=== PATIENT | female | born 1945 | race Caucasian/White ===

== ENCOUNTER 2016-04-01 17:02 | Emergency (ER) | payer MEDICARE ==
[2016-04-01 18:00] VITALS: BP 150/90
--- NOTE | 2016-04-01 19:44 | Emergency Department Report ---
Chief Complaint: Urogenital-Female Stated Complaint: HYPERGLYCEMIA/VAG PAIN/FEVER Time Seen by Provider: 04/01/16 19:34 - HPI History of Present Illness: 70-year-old female comes in for chest congestion with greenish yellow sputum gone on for 2 weeks. She is also reports that she is having some vaginal discharge as well as vaginal pain and fever. - Exam Vital Signs: Vital Signs 04/01/16 17:51 Temperature 98.6 F Pulse Rate 76 Respiratory 16 Rate Blood Pressure 150/90 O2 Sat by Pulse 99 Oximetry Physical Exam: He is alert and oriented 3. Cardiovascular S1-S2 regular rate and rhythm respiratory clear to auscultation bilateral MSE screening note: Focused history and physical exam performed. Due to findings the following was ordered: ABCs BMP chest x-ray ordered patient be evaluated the main ER ED Disposition for MSE Condition: Stable
[2016-04-01 20:19] LABS: Hematocrit 39.2 % (30.3-42.9); Hemoglobin 12.8 gm/dl (10.1-14.3); Mean Corpuscular HGB Conc 33 % (30-34); Mean Corpuscular Hemoglobin 29 pg (28-32); Mean Corpuscular Volume 90 fl (79-97); Platelet Count 250 K/mm3 (140-440); Red Blood Count 4.38 M/mm3 (3.65-5.03); Red Cell Distribution Width 15.7 % (13.2-15.2); White Blood Count 7.5 K/mm3 (4.5-11.0)
[2016-04-01 20:37] LABS: Anion Gap 17 mmol/L; Blood Urea Nitrogen 10 mg/dL (7-17); Calcium 10.4 mg/dL (8.4-10.2); Carbon Dioxide 29 mmol/L (22-30); Chloride 97.9 mmol/L (98-107); Glucose 403 mg/dL (65-100); Potassium 4.8 mmol/L (3.6-5.0); Sodium 139 mmol/L (137-145)
[2016-04-01 22:30] LABS: Bilirubin,Urine NEG (Negative); Blood,Urine NEG (Negative); Ketones,Urine NEG (Negative); Leukocyte Esterase,Urine TR (Negative); Nitrite,Urine NEG (Negative); Protein,Urine <15 mg/dL mg/dL (Negative); Urobilinogen,Urine < 2.0 mg/dL (<2.0)
--- NOTE | 2016-04-02 08:25 | XRay Report ---
ROUTINE CHEST, TWO VIEWS: HISTORY: Cough. The trachea, heart, mediastinal contour, lung whyte and bony thorax are unremarkable. IMPRESSION: Unremarkable chest x-ray.
--- NOTE | 2016-04-03 18:07 | ED Elopement Review ---
ED Pt Elopement review - Results review Lab results: Laboratory Tests 04/01/16 04/01/16 04/01/16 17:54 19:56 19:56 WBC 7.5 RBC 4.38 Hgb 12.8 Hct 39.2 MCV 90 MCH 29 MCHC 33 RDW 15.7 H Plt Count 250 Sodium 139 Potassium 4.8 Chloride 97.9 L Carbon Dioxide 29 Anion Gap 17 BUN 10 Creatinine 0.8 Estimated GFR > 60 BUN/Creatinine Ratio 12.50 Glucose 403 H POC Glucose 398 H Calcium 10.4 H Urine Color Urine Turbidity Urine pH Ur Specific [place] Urine Protein Urine Glucose (UA) Urine Ketones Urine Blood Urine Nitrite Urine Bilirubin Urine Urobilinogen Ur Leukocyte Esterase Urine WBC (Auto) Urine RBC (Auto) U Epithel Cells (Auto) 04/01/16 22:00 WBC RBC Hgb Hct MCV MCH MCHC RDW Plt Count Sodium Potassium Chloride Carbon Dioxide Anion Gap BUN Creatinine Estimated GFR BUN/Creatinine Ratio Glucose POC Glucose Calcium Urine Color Straw Urine Turbidity Clear Urine pH 5.0 Ur Specific [place] 1.022 Urine Protein <15 mg/dl Urine Glucose (UA) >=500 Urine Ketones Neg Urine Blood Neg Urine Nitrite Neg Urine Bilirubin Neg Urine Urobilinogen < 2.0 Ur Leukocyte Esterase Tr Urine WBC (Auto) 1.0 Urine RBC (Auto) 2.0 U Epithel Cells (Auto) < 1.0 - Call Back decision Pt Call Back Decision: Pt to F/U with PMD
== END 2016-04-02 03:11 | disposition left against medical advice (07) ==
LOC: ED 17:02
DX: R09.89 Other specified symptoms and signs involving the circulatory and respiratory systems (principal); N89.8 Other specified noninflammatory disorders of vagina; R50.9 Fever, unspecified; Z53.21 Procedure and treatment not carried out due to patient leaving prior to being seen by health care provider
CPT/HCPCS: 36415; 71020; 80048; 81001; 82962; 85027

== ENCOUNTER 2016-12-23 11:09 | Inpatient (IN) | payer MEDICARE ==
--- NOTE | 2016-12-23 13:29 | Emergency Department Report ---
HPI - General Chief Complaint: Hypoglycemia Time Seen by Provider: 12/23/16 12:12 - HPI HPI: This is a 71 year-old female presents to the emergency department by EMS from home with the complaint of hypoglycemia. The patient called her daughter at work and told her to "help me, help me." The daughter called EMS who was able to get into the house and found the patient had a blood sugar of 51 and then rechecked it and it was down to 33. She was given 2 oral glucose tabs and the blood sugar went up to 90. Since patient got to the emergency department, she appears to be awake and alert, following commands, but appears unable to speak. She has a past medical history of a previous CVA that did not have any residual deficits, [id number]-nnjzfabuf diabetes, GERD, hypertension, hypothyroidism and coronary artery disease with previous triple bypass in July of this year. Her primary care physician is Dr. Srinivasa Stark and her yard hand is through [facility] ED Past Medical Hx - Past Medical History Previous Medical History?: Yes Hx Hypertension: Yes Hx CVA: Yes Hx Diabetes: Yes Hx GERD: Yes Additional medical history: Hyperlipidemia, hypothyroidism - Surgical History Past Surgical History?: Yes Hx Open Heart Surgery: Yes (triple bypass) - Social History Smoking Status: Never Smoker Substance Use Type: None - Medications Home Medications: Home Medications Medication Instructions Recorded Confirmed Last Taken Type Aspirin [Aspirin TAB] 325 mg PO QDAY 09/01/15 09/01/15 Unknown History AtorvaSTATin [Lipitor] 40 mg PO HS 09/01/15 09/01/15 Unknown History Clopidogrel Bisulfate [Plavix] 75 mg PO DAILY 09/01/15 09/01/15 Unknown History HYDROcodone/APAP 5-325 [[place] 1 tab PO Q6HR PRN 09/01/15 09/01/15 Unknown History 5-325 mg TAB] Levothyroxine [Synthroid] 50 mcg PO QAM 09/01/15 09/01/15 Unknown History Losartan [Cozaar] 100 mg PO QDAY 09/01/15 09/01/15 Unknown History Metformin HCl [Glucophage] 500 mg PO BID 09/01/15 09/01/15 Unknown History Pregabalin [Lyrica] 50 mg PO BID 09/01/15 09/01/15 Unknown History Ranitidine HCl [Zantac 150 MG TAB] 300 mg PO HS 09/01/15 09/01/15 Unknown History Tramadol HCl [Ultram ER] 100 mg PO TID PRN 09/01/15 09/01/15 Unknown History amLODIPine [Norvasc] 5 mg PO DAILY 09/01/15 09/01/15 Unknown History Lantus Torresostar 35 units SUB-Q QHS 09/02/15 09/02/15 Unknown History ED Review of Systems ROS: Stated complaint: LOW BLOOD SUGAR Other details as noted in HPI Comment: All other systems reviewed and negative Constitutional: denies: chills, fever Eyes: denies: eye pain, eye discharge, vision change ENT: denies: ear pain, throat pain Respiratory: denies: cough, shortness of breath, wheezing Cardiovascular: denies: chest pain, palpitations Gastrointestinal: abdominal pain. denies: vomiting Genitourinary: denies: urgency, dysuria, discharge Musculoskeletal: arthralgia. denies: back pain Skin: denies: rash, lesions Neurological: other (aphasia). denies: headache, numbness Physical Exam - Physical Exam Vital Signs: Vital Signs 12/23/16 12/23/16 12/23/16 11:34 11:42 12:00 Pulse Rate 49 L 47 L Respiratory 10 L 16 18 Rate Blood Pressure 115/52 115/52 O2 Sat by Pulse 99 98 Oximetry 12/23/16 12:30 Pulse Rate 45 L Respiratory 17 Rate Blood Pressure 141/64 O2 Sat by Pulse 98 Oximetry Physical Exam: GENERAL: The patient is well-developed well-nourished. HENT: Normocephalic. Atraumatic. Patient has moist mucous membranes. EYES: Extraocular motions are intact. Pupils equal reactive to light bilaterally. No nystagmus. NECK: Supple. Trachea is midline. CHEST/LUNGS: Clear to auscultation. There is no respiratory distress noted. HEART/CARDIOVASCULAR: Regular. There is bradycardia.. There is no gallop rub or murmur. ABDOMEN: Abdomen is soft, nontender. Patient has normal bowel sounds. There is no abdominal distention. SKIN: Skin is warm and dry. NEURO: Patient is awake and cooperative. She responds to questions with nodding and shaking of her head. She will follow commands but is nonverbal. MUSCULOSKELETAL: There is no tenderness or deformity. There is no evidence of acute injury. ED Course Vital Signs 12/23/16 12/23/16 12/23/16 11:34 11:42 12:00 Pulse Rate 49 L 47 L Respiratory 10 L 16 18 Rate Blood Pressure 115/52 115/52 O2 Sat by Pulse 99 98 Oximetry 12/23/16 12:30 Pulse Rate 45 L Respiratory 17 Rate Blood Pressure 141/64 O2 Sat by Pulse 98 Oximetry ED Medical Decision Making - Lab Data Result diagrams: 12/23/16 13:27 12/23/16 13:27 - EKG Data -: EKG Interpreted by Me EKG shows normal: sinus rhythm, axis (LAD), intervals, QRS complexes (low voltage, nonspecific intraventricular conduction delay), ST-T waves Rate: bradycardia (45 bpm) - EKG Data When compared to previous EKG there are: no significant change Interpretation: other (sinus bradycardia, left axis deviation, nonspecific intraventricular conduction delay.) - Radiology Data Radiology results: report reviewed, image reviewed interpreted by me: Abdominal x-ray shows nonspecific nonobstructive bowel gas. Cranial CT without contrast. History: Sudden onset of expressive aphasia. Findings: Comparison is made to a previous study on September 01, 2015. There is no evidence of acute hemorrhage or infarct. The posterior fossa is normal. The ventricles are normal in size and contour. There are no masses or extra-axial collections. The overall appearance of the brain is unchanged compared to the previous study. The calvarium is intact. Impression: No acute findings or interval changes. Transcribed By: MRP Dictated By: JHON PEREZ MD Electronically Authenticated By: JOHN PEREZ MD Signed Date/Time: 12/23/16 1315 - Medical Decision Making 71-year-old female originally presented after she had some bouts of hypoglycemia causing some altered mental status. Once the blood sugar was raised, the patient then began having some sudden onset of expressive aphasia or generalized aphasia. However the patient appears to be able to answer questions by nodding or shaking her head, following commands and otherwise does not have any other specific neurological deficits. CT of the head does not show any bleed, shift, mass or any acute process. The majority of the patient' s labs are unremarkable. She was reevaluated multiple times of multiple hours and does show some improvement and she now is answering some questions verbally. However the patient continues to have some sustained bradycardia and was even seen going as low as 38 bpm. She is not on any rate control medications. For all these reasons the patient will be admitted to the hospital for further evaluation and treatment and has been accepted for admission by the hospitalist, Dr. Byrd. - Differential Diagnosis TIA, hypoglycemia, hypothyroid, Complex migraine Critical Care Time: No Critical care attestation.: If time is entered above; I have spent that time in minutes in the direct care of this critically ill patient, excluding procedure time. ED Disposition Clinical Impression: Bradycardia with 41-50 beats per minute, Aphasia Altered mental status Qualifiers: Altered mental status type: unspecified Qualified Code(s): R41.82 - Altered mental status, unspecified TIA (transient ischemic attack) Qualifiers: Transient cerebral ischemia type: unspecified Qualified Code(s): G45.9 - Transient cerebral ischemic attack, unspecified Disposition: -09 OP ADMIT IP TO THIS HOSP Is pt being admited?: Yes Condition: Stable Time of Disposition: 16:46
[2016-12-23 13:43] LABS: Basophils % (Auto) 0.5 % (0.0-1.8); Eosinophils % (Auto) 0.4 % (0.0-4.3); Hemoglobin 12.5 gm/dl (10.1-14.3); Mean Corpuscular HGB Conc 32 % (30-34); Mean Corpuscular Hemoglobin 27 pg (28-32); Mean Corpuscular Volume 86 fl (79-97); Platelet Count 239 K/mm3 (140-440); Red Blood Count 4.56 M/mm3 (3.65-5.03); Red Cell Distribution Width 18.2 % (13.2-15.2); White Blood Count 8.4 K/mm3 (4.5-11.0)
[2016-12-23 13:48] LABS: Anion Gap 17 mmol/L; BUN/Creatinine Ratio 30; Blood Urea Nitrogen 24 mg/dL (7-17); Carbon Dioxide 23 mmol/L (22-30); Chloride 105.3 mmol/L (98-107); Glucose 111 mg/dL (65-100); Potassium 4.1 mmol/L (3.6-5.0); Sodium 141 mmol/L (137-145)
[2016-12-23 16:18] LABS: Alanine Aminotransferase 12 units/L (7-56); Albumin 3.9 g/dL (3.9-5); Albumin/Globulin Ratio 1.3 %; Alkaline Phosphatase 97 units/L (35-129); Total Protein 6.8 g/dL (6.3-8.2)
[2016-12-23 16:19] LABS: Bilirubin,Direct < 0.2 mg/dL (0-0.2)
[2016-12-23 16:20] LABS: INR 1.36 (0.87-1.13)
--- NOTE | 2016-12-23 21:07 | History and Physical Report ---
History of Present Illness Date of examination: 12/23/16 Date of admission: 12/23/16 16:46 Chief complaint: CC: AMS for 6 hrs History of present illness: SUQUAMISH: 71 y/oAAF with multiple medical problems including HTN CAD T2DM and Hypothyroidismbrought in by EMS for Altered sensorium.Patient calls her daughter at work asking her to elp herand that she is not feeling well.Daughter calls EMS and patient was found to be Hypoglycemic at home with BG of 33.Was given 2 amps of D50w enrouteto ER.More alert on arrival.In ER patient becomes altered again for one hour with Dysphasia.During my exam patient was lethargic but able to answer questions appropriately.Able to move all 4 extremities.No fever/chills.No chest pain.No exacerbating factors except missing a meal. Past Medical History Previous Medical History?: Yes Hx Hypertension: Yes Hx CVA: Yes Hx Diabetes: Yes Hx GERD: Yes Hyperlipidemia, hypothyroidism - Surgical History Past Surgical History?: Yes Hx Open Heart Surgery: Yes (triple bypass) - Social History Smoking Status: Never Smoker Substance Use Type: None Fam Hx Htn Review of Systems Stated complaint: LOW BLOOD SUGAR Other details as noted in HPI Comment: All other systems reviewed and negative Constitutional: denies: chills, fever Eyes: denies: eye pain, eye discharge, vision change ENT: denies: ear pain, throat pain Respiratory: denies: cough, shortness of breath, wheezing Cardiovascular: denies: chest pain, palpitations Gastrointestinal: abdominal pain. denies: vomiting Genitourinary: denies: urgency, dysuria, discharge Musculoskeletal: arthralgia. denies: back pain Skin: denies: rash, lesions Neurological: other (aphasia). denies: headache, numbness - Medications Home Medications: Home Medications Medication Instructions Recorded Confirmed Last Taken Type Aspirin [Aspirin TAB] 325 mg PO QDAY 09/01/15 09/01/15 Unknown History AtorvaSTATin [Lipitor] 40 mg PO HS 09/01/15 09/01/15 Unknown History Clopidogrel Bisulfate [Plavix] 75 mg PO DAILY 09/01/15 09/01/15 Unknown History HYDROcodone/APAP 5-325 [[place] 1 tab PO Q6HR PRN 09/01/15 09/01/15 Unknown History 5-325 mg TAB] Levothyroxine [Synthroid] 50 mcg PO QAM 09/01/15 09/01/15 Unknown History Losartan [Cozaar] 100 mg PO QDAY 09/01/15 09/01/15 Unknown History Metformin HCl [Glucophage] 500 mg PO BID 09/01/15 09/01/15 Unknown History Pregabalin [Lyrica] 50 mg PO BID 09/01/15 09/01/15 Unknown History Ranitidine HCl [Zantac 150 MG TAB] 300 mg PO HS 09/01/15 09/01/15 Unknown History Tramadol HCl [Ultram ER] 100 mg PO TID PRN 09/01/15 09/01/15 Unknown History amLODIPine [Norvasc] 5 mg PO DAILY 09/01/15 09/01/15 Unknown History Lantus Solostar 35 units SUB-Q QHS 09/02/15 09/02/15 Unknown History Medications and Allergies Allergies Allergy/AdvReac Type Severity Reaction Status Date / Time Sulfa (Sulfonamide Allergy Unknown Verified 12/23/16 11:55 Antibiotics) Home Medications Medication Instructions Recorded Confirmed Last Taken Type Clopidogrel Bisulfate [Plavix] 75 mg PO DAILY 09/01/15 12/23/16 Unknown History Levothyroxine [Synthroid] 50 mcg PO QAM 09/01/15 12/23/16 Unknown History Losartan [Cozaar] 100 mg PO QDAY 09/01/15 12/23/16 Unknown History Metformin HCl [Glucophage] 500 mg PO BID 09/01/15 12/23/16 Unknown History Tramadol HCl [Ultram ER] 100 mg PO TID PRN 09/01/15 12/23/16 Unknown History Insulin Glargine,Hum.rec.anlog 30 units SUB-Q QHS #0 09/02/15 12/23/16 Unknown History [Lantus] Acetaminophen [Mapap] 500 mg PO QDAY PRN 12/23/16 12/23/16 Unknown History Aspirin [Aspirin EC] 81 mg PO QDAY 12/23/16 12/23/16 Unknown History Fluticasone/Salmeterol [Advair 1 puff IH BID 12/23/16 12/23/16 Unknown History Diskus 250-50 mcg] Furosemide [Lasix] 20 mg PO QDAY 12/23/16 12/23/16 Unknown History Hydrochlorothiazide 12.5 mg PO QDAY 12/23/16 12/23/16 Unknown History [Hydrochlorothiazide] Insulin Lispro [Humalog] 30 units SC QAM 12/23/16 12/23/16 Unknown History Metoprolol [Lopressor TAB] 50 mg PO BID 12/23/16 12/23/16 Unknown History Omeprazole [Omeprazole] 40 mg PO QDAY 12/23/16 12/23/16 Unknown History Potassium Chloride [Klor-Con 10] 10 meq PO QDAY 12/23/16 12/23/16 Unknown History Warfarin [Coumadin] 10 mg PO QDAY 12/23/16 12/23/16 Unknown History amLODIPine [Norvasc] 10 g PO QDAY 12/23/16 12/23/16 Unknown History Active Meds: Active Medications Heparin Sodium (Porcine) (Heparin) 5,000 unit SUB-Q Q8HR KELLEN Exam - Physical Exam Narrative exam: Lying Comfortably - Constitutional Vitals: Temp Pulse Resp BP Pulse Ox 54 L 22 126/50 95 12/23/16 20:00 12/23/16 20:00 12/23/16 20:00 12/23/16 20:00 General appearance: Present: no acute distress, well-nourished - EENT Eyes: Present: PERRL ENT: hearing intact, clear oral mucosa - Neck Neck: Present: supple, normal ROM - Respiratory Respiratory effort: normal Respiratory: bilateral: CTA - Cardiovascular Heart rate: 80 (Mid line Thoracotomy scar on chest from Cabg) Rhythm: regular Heart Sounds: Present: S1 & S2. Absent: rub, click - Extremities Extremities: no ischemia, pulses intact, pulses symmetrical, No edema Peripheral Pulses: within normal limits - Abdominal General gastrointestinal: Present: soft, non-tender, non-distended, normal bowel sounds Female genitourinary: Present: normal - Integumentary Integumentary: Present: clear, warm, dry - Musculoskeletal Musculoskeletal: gait normal, strength equal bilaterally - Psychiatric Psychiatric: appropriate mood/affect, intact judgment & insight - Neurologic Neurologic: CNII-XII intact, moves all extremities, gait normal - Allied Health Allied health notes reviewed: nursing, case management Results - Labs CBC & Chem 7: 12/23/16 13:27 12/23/16 13:27 Labs: Laboratory Last Values WBC 8.4 K/mm3 (4.5-11.0) 12/23/16 13:27 RBC 4.56 M/mm3 (3.65-5.03) 12/23/16 13:27 Hgb 12.5 gm/dl (10.1-14.3) 12/23/16 13:27 Hct 39.0 % (30.3-42.9) 12/23/16 13:27 MCV 86 fl (79-97) 12/23/16 13: MCH 27 pg (28-32) L 12/23/16 13: MCHC 32 % (30-34) 12/23/16 13: RDW 18.2 % (13.2-15.2) H 12/23/16 13:27 Plt Count 239 K/mm3 (140-440) 12/23/16 13:27 Lymph % (Auto) 22.1 % (13.4-35.0) 12/23/16 13:27 Dare % (Auto) 3.5 % (0.0-7.3) 12/23/16 13: Eos % (Auto) 0.4 % (0.0-4.3) 12/23/16 13:27 Baso % (Auto) 0.5 % (0.0-1.8) 12/23/16 13: Lymph # 1.9 K/mm3 (1.2-5.4) 12/23/16 13:27 Dare # 0.3 K/mm3 (0.0-0.8) 12/23/16 13:27 Eos # 0.0 K/mm3 (0.0-0.4) 12/23/16 13:27 Baso # 0.0 K/mm3 (0.0-0.1) 12/23/16 13:27 Seg Neutrophils % 73.5 % (40.0-70.0) H 12/23/16 13:27 Seg Neutrophils # 6.1 K/mm3 (1.8-7.7) 12/23/16 13:27 PT 17.5 Sec. (12.2-14.9) H 12/23/16 15:24 INR 1.36 (0.87-1.13) H 12/23/16 15:24 VBG pH 7.404 (7.320-7.420) 12/23/16 13:27 Sodium 141 mmol/L (137-145) 12/23/16 13:27 Potassium 4.1 mmol/L (3.6-5.0) 12/23/16 13:27 Chloride 105.3 mmol/L (98-107) 12/23/16 13:27 Carbon Dioxide 23 mmol/L (22-30) 12/23/16 13:27 Anion Gap 17 mmol/L 12/23/16 13:27 BUN 24 mg/dL (7-17) H 12/23/16 13:27 Creatinine 0.8 mg/dL (0.7-1.2) 12/23/16 13:27 Estimated GFR > 60 ml/min 12/23/16 13:27 BUN/Creatinine Ratio 30 % 12/23/16 13:27 Glucose 111 mg/dL (65-100) H 12/23/16 13:27 POC Glucose 211 (70-105) H 12/23/16 20:35 Calcium 10.0 mg/dL (8.4-10.2) 12/23/16 13:27 Total Bilirubin 0.20 mg/dL (0.1-1.2) 12/23/16 15:24 Direct Bilirubin < 0.2 mg/dL (0-0.2) 12/23/16 15:24 Indirect Bilirubin 0.0 mg/dL 12/23/16 15:24 AST 14 units/L (5-40) 12/23/16 15:24 ALT 12 units/L (7-56) 12/23/16 15:24 Alkaline Phosphatase 97 units/L (35-129) 12/23/16 15:24 Troponin T < 0.010 ng/mL (0.00-0.029) 12/23/16 13:27 Total Protein 6.8 g/dL (6.3-8.2) 12/23/16 15:24 Albumin 3.9 g/dL (3.9-5) 12/23/16 15:24 Albumin/Globulin Ratio 1.3 % 12/23/16 15:24 TSH 2.210 mlU/mL (0.270-4.200) 12/23/16 15:24 - Imaging and Cardiology EKG: report reviewed (Sinus Bradycardia 45/min) Abdominal x-ray: report reviewed (NAF) CT Scan - head: report reviewed (NAF) Assessment and Plan Advance Directives: Yes (Full code) VTE prophylaxis?: Chemical Plan of care discussed with patient/family: Yes - Patient Problems (1) Acute metabolic encephalopathy Current Visit: Yes Status: Acute Plan to address problem: sec to Hypoglycemia. To adjust insulin and diet counselor regarding regular dietary intake so that hypoglycemia does not happenWill admit for 48 hrs. Stroke work up not initiated.To initiate if any focal deficits.occur (2) IDDM (insulin dependent diabetes mellitus) Current Visit: Yes Status: Acute Plan to address problem: Cont Lantus and Metformin Decreased Lantus to 30 from 35 units Qhs (3) Bradycardia with 41-50 beats per minute Current Visit: Yes Status: Acute Plan to address problem: Cardiology consult requested To avoid Ruthie blocking agents.Patient not on any at this time (4) TIA (transient ischemic attack) Current Visit: Yes Status: Acute Qualifiers: Transient cerebral ischemia type: unspecified Qualified Code(s): G45.9 - Transient cerebral ischemic attack, unspecified Plan to address problem: UNLIKely.Carotid duplex scan ordered (5) HLD (hyperlipidemia) Current Visit: Yes Status: Chronic Qualifiers: Hyperlipidemia type: mixed hyperlipidemia Qualified Code(s): E78.2 - Mixed hyperlipidemia Plan to address problem: Cont statins (6) HTN (hypertension) Current Visit: Yes Status: Chronic Qualifiers: Hypertension type: essential hypertension Qualified Code(s): I10 - Essential (primary) hypertension Plan to address problem: cont Losartan (7) CAD (coronary artery disease) Current Visit: Yes Status: Chronic Qualifiers: Coronary Disease-Associated Artery/Lesion type: unga artery [place] vs. transplanted heart: N Associated angina: without angina Plan to address problem: On Plavix (8) Hypothyroidism Current Visit: Yes Status: Chronic Qualifiers: Hypothyroidism type: acquired Qualified Code(s): E03.9 - Hypothyroidism, unspecified Plan to address problem: Cont Synthyroid (9) DVT prophylaxis Current Visit: Yes Status: Acute Plan to address problem: on lovenox
[2016-12-23] MEDS ORDERED: TRAMADOL HCL 100 MG PO PRN (21:08)
[2016-12-23] MEDS ORDERED: ZOFRAN IV PRN (21:15)
[2016-12-23] MEDS ORDERED: NON-FORMULARY (Hydrochlorothiazide [Hydrochlorothiazide] 12.5 MG) PO SCH (21:15)
[2016-12-23] MEDS ORDERED: DULCOLAX PR PRN (21:15)
[2016-12-23] MEDS ORDERED: NON-FORMULARY (Omeprazole [Omeprazole] 40 MG) PO SCH (21:15)
[2016-12-23] MEDS ORDERED: D50W (25GM) Syringe IV PRN (21:15)
[2016-12-23] MEDS ORDERED: PERCOCET 5/325 PO PRN (21:15)
[2016-12-23] MEDS ORDERED: NON-FORMULARY (Losartan [Cozaar] 100 MG) PO SCH (21:15)
[2016-12-23] MEDS ORDERED: NON-FORMULARY (Potassium Chloride [Klor-Con 10] 10 MEQ) PO SCH (21:15)
[2016-12-23] MEDS ORDERED: DILAUDID IV PRN (21:15)
[2016-12-23] MEDS ORDERED: MILK OF MAGNESIA PO PRN (21:15)
[2016-12-23] MEDS ORDERED: TYLENOL PO PRN (21:15)
[2016-12-23] MEDS ORDERED: ULTRAM PO PRN (21:40)
[2016-12-23] MEDS ORDERED: NON-FORMULARY (Insulin Glargine,Hum.Rec.Anlog [Lantus] 30 UNITS) SUB-Q SCH (22:00)
[2016-12-23] MEDS ORDERED: NON-FORMULARY (Fluticasone/Salmeterol [Advair Diskus 250-50 Mcg] 1 PUFF) IH SCH (22:00)
[2016-12-23] MEDS: COUMADIN PO SCH (22:41)
[2016-12-23] MEDS: HEPARIN SUB-Q SCH (22:42)
[2016-12-23] MEDS: PEPCID IV SCH (22:43)
[2016-12-23] MEDS: PLAVIX PO SCH (22:43)
[2016-12-23] MEDS: GLUCOPHAGE PO SCH (22:43)
[2016-12-23] MEDS: K-DUR PO SCH (22:44)
[2016-12-23] MEDS: COZAAR PO SCH (22:44)
[2016-12-23] MEDS: NOVOLOG SUB-Q SCH (22:46)
[2016-12-23] MEDS: NORVASC PO SCH (22:47)
[2016-12-23] MEDS: LOPRESSOR PO SCH (22:50)
[2016-12-23] MEDS: PULMICORT IH SCH (23:04)
[2016-12-23] MEDS: BROVANA NEBU IH SCH (23:04)
[2016-12-24] MEDS: LEVEMIR SUB-Q SCH ×2 (00:04→22:21)
[2016-12-24 04:25] LABS: Bilirubin,Urine NEG (Negative); Blood,Urine NEG (Negative); Ketones,Urine NEG (Negative); Leukocyte Esterase,Urine NEG (Negative); Nitrite,Urine NEG (Negative); Protein,Urine <15 mg/dL mg/dL (Negative); Urobilinogen,Urine < 2.0 mg/dL (<2.0)
[2016-12-24] MEDS: SYNTHROID PO SCH (05:14)
[2016-12-24] MEDS: HEPARIN SUB-Q SCH ×3 (05:14→22:26)
--- NOTE | 2016-12-24 07:50 | XRay Report ---
ABDOMEN, 2 views: History: Abdominal pain. There is no evidence for dilated bowel, fluid levels or free air. There is moderate stool throughout the length of the colon. No pathologic calcifications are detected. The lung bases are clear. IMPRESSION: No acute abdominal process. Mild fecal retention.
[2016-12-24 08:04] LABS: Alanine Aminotransferase 11 units/L (7-56); Albumin 3.1 g/dL (3.9-5); Alkaline Phosphatase 84 units/L (35-129); Anion Gap 17 mmol/L; BUN/Creatinine Ratio 25; Bilirubin,Total < 0.20 mg/dL (0.1-1.2); Blood Urea Nitrogen 20 mg/dL (7-17); Calcium 9.9 mg/dL (8.4-10.2); Carbon Dioxide 23 mmol/L (22-30); Chloride 107.5 mmol/L (98-107); Glucose 146 mg/dL (65-100); Potassium 4.3 mmol/L (3.6-5.0); Sodium 143 mmol/L (137-145); Total Protein 6.3 g/dL (6.3-8.2)
[2016-12-24] MEDS ORDERED: INSULIN LISPRO 30 UNIT SC SCH (10:00)
[2016-12-24] MEDS: PLAVIX PO SCH (11:08)
[2016-12-24] MEDS: HALFPRIN EC PO SCH (11:08)
--- NOTE | 2016-12-24 11:08 | Consultation ---
History of Present Illness Consult reason: other History of present illness: 71 year old female presenting with AMS secondary to hypoglycemia. She was noted to have sinus bradycardia on ECG hence cardiac consultation. Patient denies chest pain, shortness of breath, palpitations, syncope, or lightheadedness. She feels much better after correction of her blood glucose level Past History Past Medical History: CAD, COPD, diabetes, hypertension, hyperlipidemia, other ( TIA, sleep apnea) Past Surgical History: CABG, thyroidectomy, hysterectomy, tonsillectomy, Other ( tubal ligation) Social history: no significant social history Family history: no significant family history Medications and Allergies Allergies Allergy/AdvReac Type Severity Reaction Status Date / Time Sulfa (Sulfonamide Allergy Unknown Verified 12/23/16 11:55 Antibiotics) Home Medications Medication Instructions Recorded Confirmed Last Taken Type Clopidogrel Bisulfate [Plavix] 75 mg PO DAILY 09/01/15 12/23/16 Unknown History Levothyroxine [Synthroid] 50 mcg PO QAM 09/01/15 12/23/16 Unknown History Losartan [Cozaar] 100 mg PO QDAY 09/01/15 12/23/16 Unknown History Metformin HCl [Glucophage] 500 mg PO BID 09/01/15 12/23/16 Unknown History Tramadol HCl [Ultram ER] 100 mg PO TID PRN 09/01/15 12/23/16 Unknown History Insulin Glargine,Hum.rec.anlog 30 units SUB-Q QHS #0 09/02/15 12/23/16 Unknown History [Lantus] Acetaminophen [Mapap] 500 mg PO QDAY PRN 12/23/16 12/23/16 Unknown History Aspirin [Aspirin EC] 81 mg PO QDAY 12/23/16 12/23/16 Unknown History Fluticasone/Salmeterol [Advair 1 puff IH BID 12/23/16 12/23/16 Unknown History Diskus 250-50 mcg] Furosemide [Lasix] 20 mg PO QDAY 12/23/16 12/23/16 Unknown History Hydrochlorothiazide 12.5 mg PO QDAY 12/23/16 12/23/16 Unknown History [Hydrochlorothiazide] Insulin Lispro [Humalog] 30 units SC QAM 12/23/16 12/23/16 Unknown History Metoprolol [Lopressor TAB] 50 mg PO BID 12/23/16 12/23/16 Unknown History Omeprazole [Omeprazole] 40 mg PO QDAY 12/23/16 12/23/16 Unknown History Potassium Chloride [Klor-Con 10] 10 meq PO QDAY 12/23/16 12/23/16 Unknown History Warfarin [Coumadin] 10 mg PO QDAY 12/23/16 12/23/16 Unknown History amLODIPine [Norvasc] 10 g PO QDAY 12/23/16 12/23/16 Unknown History Active Meds: Active Medications Acetaminophen (Tylenol) 650 mg PO Q4H PRN PRN Reason: Pain MILD(1-3)/Fever >100.5/MCMILLAN Amlodipine Besylate (Norvasc) 10 mg PO QDAY [facility] Last Admin: 12/23/16 22:47 Dose: Not Given Arformoterol Tartrate (Brovana Nebu) 15 mcg IH Q12HRT [facility] Last Admin: 12/23/16 23:04 Dose: 15 mcg Aspirin (Halfprin Ec) 81 mg PO QDAY [facility] Bisacodyl (Dulcolax) 10 mg RI QDAY PRN PRN Reason: Constipation unrelieved by MOM Budesonide (Pulmicort) 0.5 mg IH Q12HRT [facility] Last Admin: 12/23/16 23:04 Dose: 0.5 mg Clopidogrel Bisulfate (Plavix) 75 mg PO DAILY [facility] Last Admin: 12/23/16 22:43 Dose: 75 mg Dextrose (D50w (25gm) Syringe) 50 ml IV PRN PRN PRN Reason: Hypoglycemia Famotidine (Pepcid) 20 mg IV BID [facility] Last Admin: 12/23/16 22:43 Dose: 20 mg Furosemide (Lasix) 20 mg PO QDAY [facility] Heparin Sodium (Porcine) (Heparin) 5,000 unit SUB-Q Q8HR [facility] Last Admin: 12/24/16 05:14 Dose: 5,000 unit Hydrochlorothiazide (Hctz) 12.5 mg PO QDAY [facility] Hydromorphone HCl (Dilaudid) 0.5 mg IV Q3H PRN PRN Reason: Pain , Severe (7-10) Insulin Aspart (Novolog) 0 units SUB-Q ACHS [facility] PRN Reason: Protocol Last Admin: 12/23/16 22:46 Dose: 3 units Insulin Aspart (Novolog) 30 units SUB-Q QAMDIAB [facility] Insulin Detemir (Levemir) 30 units SUB-Q QHS [facility] Last Admin: 12/24/16 00:04 Dose: 30 units Levothyroxine Sodium (Synthroid) 50 mcg PO QAM@0600 [facility] Last Admin: 12/24/16 05:14 Dose: 50 mcg Losartan Potassium (Cozaar) 100 mg PO QDAY [facility] Last Admin: 12/23/16 22:44 Dose: 100 mg Magnesium Hydroxide (Milk Of Magnesia) 30 ml PO Q4H PRN PRN Reason: Constipation Metformin HCl (Glucophage) 500 mg PO BIDDIAB [facility] Last Admin: 12/23/16 22:43 Dose: 500 mg Metoprolol Tartrate (Lopressor) 50 mg PO BID [facility] Last Admin: 12/23/16 22:50 Dose: Not Given Ondansetron HCl (Zofran) 4 mg IV Q8H PRN PRN Reason: N/V unrelieved by Reglan Oxycodone/Acetaminophen (Percocet 5/325) 1 tab PO Q6H PRN PRN Reason: Pain, Moderate (4-6) Potassium Chloride (K-Dur) 10 meq PO QDAY [facility] Last Admin: 12/23/16 22:44 Dose: 10 meq Tramadol HCl (Ultram) 100 mg PO TID PRN PRN Reason: Pain Warfarin Sodium (Coumadin) 10 mg PO QDAY@1700 [facility] PRN Reason: Protocol Last Admin: 12/23/16 22:41 Dose: 10 mg Review of Systems All systems: negative Physical Examination Vital Signs Resp 10 L 12/23/16 11:34 General appearance: no acute distress HEENT: Positive: PERRL Neck: Positive: neck supple Cardiac: Positive: Reg Rate and Rhythm Lungs: Positive: Normal Exam Neuro: Positive: Grossly Intact Abdomen: Positive: Soft Extremities: Present: normal Results 12/23/16 13:27 12/24/16 07:06 Cardiac Enzymes 12/24/16 Range/Units 07:06 AST 11 (5-40) units/L Comprehensive Metabolic Panel 12/24/16 Range/Units 07:06 Sodium 143 (137-145) mmol/L Potassium 4.3 (3.6-5.0) mmol/L Chloride 107.5 H (98-107) mmol/L Carbon Dioxide 23 (22-30) mmol/L BUN 20 H (7-17) mg/dL Creatinine 0.8 (0.7-1.2) mg/dL Glucose 146 H (65-100) mg/dL Calcium 9.9 (8.4-10.2) mg/dL AST 11 (5-40) units/L ALT 11 (7-56) units/L Alkaline Phosphatase 84 (35-129) units/L Total Protein 6.3 (6.3-8.2) g/dL Albumin 3.1 L (3.9-5) g/dL Assessment and Plan AMS secondary to hypoglycemia Asymptomatic chronic sinus bradycardia CAD s/p CABG 07/2016 Normal LVEF 07/2016 Warfarin therapy Exact reason for warfarin use is not well known Suspect post CABG transient afib COPD Sleep apnea Morbid obesity Type II DM Recommendations: Taper metoprolol to off (reduce dose to 25 mg po bid for 2 days then discontinue ) Event monitor as outpatient No need for further cardiac intervention
[2016-12-24] MEDS: BROVANA NEBU IH SCH (11:11)
[2016-12-24] MEDS: PULMICORT IH SCH (11:12)
[2016-12-24] MEDS: K-DUR PO SCH (11:16)
[2016-12-24] MEDS: NORVASC PO SCH (11:16)
[2016-12-24] MEDS: PEPCID IV SCH (11:16)
[2016-12-24] MEDS: GLUCOPHAGE PO SCH ×2 (11:16→18:11)
[2016-12-24] MEDS: HCTZ PO SCH (11:16)
[2016-12-24] MEDS: COZAAR PO SCH (11:17)
[2016-12-24] MEDS: LASIX PO SCH (11:17)
[2016-12-24] MEDS: NOVOLOG SUB-Q SCH ×5 (11:19→22:21)
[2016-12-24] MEDS: LOPRESSOR PO SCH ×3 (12:01→22:28)
[2016-12-24] MEDS: COUMADIN PO SCH (18:08)
--- NOTE | 2016-12-24 19:46 | Progress Note ---
Assessment and Plan Assessment and plan: (1) Acute metabolic encephalopathy Current Visit: Yes Status: Acute Plan to address problem: sec to Hypoglycemia. To adjust insulin and deputy chief counsel regarding regular dietary intake so that hypoglycemia does not happenWill admit for 48 hrs. Stroke work up not initiated.To initiate if any focal deficits.occur (2) IDDM (insulin dependent diabetes mellitus) Current Visit: Yes Status: Acute Plan to address problem: Cont Lantus and Metformin Decreased Lantus to 30 from 35 units Qhs (3) Bradycardia with 41-50 beats per minute Current Visit: Yes Status: Acute Plan to address problem: Cardiology consult requested To avoid Ruthie blocking agents.Patient not on any at this time (4) TIA (transient ischemic attack) Current Visit: Yes Status: Acute Qualifiers: Transient cerebral ischemia type: unspecified Qualified Code(s): G45.9 - Transient cerebral ischemic attack, unspecified Plan to address problem: UNLIKely.Carotid duplex scan ordered (5) HLD (hyperlipidemia) Current Visit: Yes Status: Chronic Qualifiers: Hyperlipidemia type: mixed hyperlipidemia Qualified Code(s): E78.2 - Mixed hyperlipidemia Plan to address problem: Cont statins (6) HTN (hypertension) Current Visit: Yes Status: Chronic Qualifiers: Hypertension type: essential hypertension Qualified Code(s): I10 - Essential (primary) hypertension Plan to address problem: cont Losartan (7) CAD (coronary artery disease) Current Visit: Yes Status: Chronic Qualifiers: Coronary Disease-Associated Artery/Lesion type: [place] artery [place] vs. transplanted heart: N Associated angina: without angina Plan to address problem: On Plavix (8) Hypothyroidism Current Visit: Yes Status: Chronic Qualifiers: Hypothyroidism type: acquired Qualified Code(s): E03.9 - Hypothyroidism, unspecified Plan to address problem: Cont Synthyroid (9) DVT prophylaxis Current Visit: Yes Status: Acute Plan to address problem: on lovenox History Interval history: feeling better Hospitalist Physical - Constitutional Vitals: Temp Pulse Resp BP Pulse Ox 97.8 F 70 20 96/48 96 12/24/16 09:22 12/24/16 12:00 12/24/16 09:22 12/24/16 11:17 12/24/16 09:22 General appearance: Present: no acute distress Results - Labs CBC & Chem 7: 12/23/16 13:27 12/24/16 07:06 Labs: Laboratory Last Values WBC 8.4 K/mm3 (4.5-11.0) 12/23/16 13:27 RBC 4.56 M/mm3 (3.65-5.03) 12/23/16 13:27 Hgb 12.5 gm/dl (10.1-14.3) 12/23/16 13:27 Hct 39.0 % (30.3-42.9) 12/23/16 13:27 MCV 86 fl (79-97) 12/23/16 13:27 MCH 27 pg (28-32) L 12/23/16 13:27 MCHC 32 % (30-34) 12/23/16 13: RDW 18.2 % (13.2-15.2) H 12/23/16 13:27 Plt Count 239 K/mm3 (140-440) 12/23/16 13:27 Lymph % (Auto) 22.1 % (13.4-35.0) 12/23/16 13:27 [place] % (Auto) 3.5 % (0.0-7.3) 12/23/16 13:27 Eos % (Auto) 0.4 % (0.0-4.3) 12/23/16 13:27 Baso % (Auto) 0.5 % (0.0-1.8) 12/23/16 13:27 Lymph # 1.9 K/mm3 (1.2-5.4) 12/23/16 13:27 [place] # 0.3 K/mm3 (0.0-0.8) 12/23/16 13:27 Eos # 0.0 K/mm3 (0.0-0.4) 12/23/16 13:27 Baso # 0.0 K/mm3 (0.0-0.1) 12/23/16 13:27 Seg Neutrophils % 73.5 % (40.0-70.0) H 12/23/16 13:27 Seg Neutrophils # 6.1 K/mm3 (1.8-7.7) 12/23/16 13:27 PT 17.5 Sec. (12.2-14.9) H 12/23/16 15:24 INR 1.36 (0.87-1.13) H 12/23/16 15:24 VBG pH 7.404 (7.320-7.420) 12/23/16 13:27 Sodium 143 mmol/L (137-145) 12/24/16 07:06 Potassium 4.3 mmol/L (3.6-5.0) 12/24/16 07:06 Chloride 107.5 mmol/L (98-107) H 12/24/16 07:06 Carbon Dioxide 23 mmol/L (22-30) 12/24/16 07:06 Anion Gap 17 mmol/L 12/24/16 07:06 BUN 20 mg/dL (7-17) H 12/24/16 07:06 Creatinine 0.8 mg/dL (0.7-1.2) 12/24/16 07:06 Estimated GFR > 60 ml/min 12/24/16 07:06 BUN/Creatinine Ratio 25 % 12/24/16 07:06 Glucose 146 mg/dL (65-100) H 12/24/16 07:06 POC Glucose 65 (70-105) L 12/24/16 17:48 Hemoglobin A1c 9.2 % (4-6) H 12/24/16 07:06 Calcium 9.9 mg/dL (8.4-10.2) 12/24/16 07:06 Total Bilirubin < 0.20 mg/dL (0.1-1.2) 12/24/16 07:06 Direct Bilirubin < 0.2 mg/dL (0-0.2) 12/23/16 15:24 Indirect Bilirubin 0.0 mg/dL 12/23/16 15:24 AST 11 units/L (5-40) 12/24/16 07:06 ALT 11 units/L (7-56) 12/24/16 07:06 Alkaline Phosphatase 84 units/L (35-129) 12/24/16 07:06 Troponin T < 0.010 ng/mL (0.00-0.029) 12/23/16 13:27 Total Protein 6.3 g/dL (6.3-8.2) 12/24/16 07:06 Albumin 3.1 g/dL (3.9-5) L 12/24/16 07:06 Albumin/Globulin Ratio 1.0 % 12/24/16 07:06 TSH 2.210 mlU/mL (0.270-4.200) 12/23/16 15:24 Urine Color Yellow (Yellow) 12/23/16 Unknown Urine Turbidity Clear (Clear) 12/23/16 Unknown Urine pH 5.0 (5.0-7.0) 12/23/16 Unknown Ur Specific [place] 1.016 (1.003-1.030) 12/23/16 Unknown Urine Protein <15 mg/dl mg/dL (Negative) 12/23/16 Unknown Urine Glucose (UA) Neg mg/dL (Negative) 12/23/16 Unknown Urine Ketones Neg mg/dL (Negative) 12/23/16 Unknown Urine Blood Neg (Negative) 12/23/16 Unknown Urine Nitrite Neg (Negative) 12/23/16 Unknown Urine Bilirubin Neg (Negative) 12/23/16 Unknown Urine Urobilinogen < 2.0 mg/dL (<2.0) 12/23/16 Unknown Ur Leukocyte Esterase Neg (Negative) 12/23/16 Unknown Urine WBC (Auto) 1.0 /HPF (0.0-6.0) 12/23/16 Unknown Urine RBC (Auto) 1.0 /HPF (0.0-6.0) 12/23/16 Unknown U Epithel Cells (Auto) 1.0 /HPF (0-13.0) 12/23/16 Unknown
[2016-12-24] MEDS: PEPCID PO SCH (22:28)
[2016-12-25 04:53] LABS: INR 1.57 (0.87-1.13)
[2016-12-25] MEDS: HEPARIN SUB-Q SCH (06:07)
[2016-12-25] MEDS: SYNTHROID PO SCH (06:07)
[2016-12-25] MEDS: NOVOLOG SUB-Q SCH ×2 (08:00→09:43)
[2016-12-25 08:10] VITALS: BP 99/43
[2016-12-25] MEDS: LASIX PO SCH (09:41)
[2016-12-25] MEDS: HCTZ PO SCH (09:41)
[2016-12-25] MEDS: PEPCID PO SCH (09:41)
[2016-12-25] MEDS: PLAVIX PO SCH (09:41)
[2016-12-25] MEDS: K-DUR PO SCH (09:41)
--- NOTE | 2016-12-25 09:59 | Progress Note ---
Assessment and Plan AMS secondary to hypoglycemia Asymptomatic sinus bradycardia CAD s/p CABG 07/2016 Normal LVEF 07/2016 Warfarin therapy Exact reason for warfarin use is not well known Suspect post CABG transient afib COPD Sleep apnea Morbid obesity Type II DM Recommendations: Taper metoprolol to off (reduce dose to 25 mg po bid for 2 days then discontinue ) Event monitor as outpatient Conservative cardiac management. Subjective Date of service: 12/25/16 Interval history: Patient has no complaints. She denies chest pain and shortness of breath. Objective Vital Signs Temp Pulse Resp BP Pulse Ox 12/25/16 08:14 53 L 12/25/16 07:31 97.8 F 57 L 18 99/43 96 12/25/16 03:22 98.2 F 60 20 102/41 95 12/25/16 00:37 98.2 F 62 20 107/56 97 12/24/16 20:40 62 12/24/16 19:13 98.5 F 53 L 20 123/63 100 12/24/16 17:44 97.7 F 62 20 97/56 98 12/24/16 12:00 70 12/24/16 11:17 96/48 12/24/16 11:16 96/48 - Physical Examination General: No Apparent Distress HEENT: Positive: PERRL Neck: Positive: neck supple Cardiac: Positive: Reg Rate and Rhythm Neuro: Positive: Grossly Intact Abdomen: Positive: Soft Extremities: Present: normal - Labs and Meds Coagulation 12/25/16 Range/Units 03:51 PT 19.5 H (12.2-14.9) Sec. INR 1.57 H (0.87-1.13) - Imaging and Cardiology EKG: report reviewed (Sinus Bradycardia 45/min)
[2016-12-25] MEDS: NORVASC PO SCH (10:00)
[2016-12-25] MEDS: COZAAR PO SCH (10:00)
[2016-12-25] MEDS: LOPRESSOR PO SCH (10:00)
[2016-12-25] MEDS: GLUCOPHAGE PO SCH (10:08)
[2016-12-25] MEDS: HALFPRIN EC PO SCH (10:08)
--- NOTE | 2016-12-25 11:23 | Discharge Summary ---
Providers - Providers Date of Admission: 12/23/16 16:46 Date of discharge: 12/25/16 Attending physician: AUNG MARTINEZ 12/23/16 21:16 Consult to Dietitian/Nutrition [CONS] Routine Physician Instructions: Reason For Exam: Reason for Consult: Diet education 12/24/16 06:28 Consult to Physician [CONS] Routine Consulting Provider: MAEVE CARRILLO Reason For Exam: bradycardia Place consult to:: [place] [facility] Notified:: Adia gagnon Phone number called:: [phone] Was contact made?: Yes If yes, spoke with:: Adia gagnon Time called:: 08:10 Primary care physician: [facility] [employer] Hospitalization Condition: Stable Pertinent studies: CT head Carotid Doppler Abdomen X-ray Disposition: [id number] HOME UNDER HOME [facility] Time spent for discharge: 35 min Core Measure Documentation - Palliative Care Palliative Care/ Comfort Measures: Not Applicable - Core Measures Any of the following diagnoses?: none Exam - Physical Exam Narrative exam: Seen and examined: - Constitutional Vitals: Temp Pulse Resp BP Pulse Ox 97.8 F 53 L 18 99/43 96 12/25/16 07:31 12/25/16 08:14 12/25/16 07:31 12/25/16 07:31 12/25/16 07:31 General appearance: Present: no acute distress, obese - EENT Eyes: Present: PERRL, EOM intact. Absent: scleral icterus, conjunctival injection - Neck Neck: Present: supple, normal ROM. Absent: masses or JVD - Respiratory Respiratory effort: normal Respiratory: bilateral: CTA, negative: rales, rhonchi - Cardiovascular Rhythm: regular Heart Sounds: Present: S1 & S2. Absent: systolic murmur - Extremities Extremities: no ischemia - Abdominal General gastrointestinal: Present: soft, non-tender, non-distended, normal bowel sounds - Musculoskeletal Musculoskeletal: strength equal bilaterally - Psychiatric Psychiatric: cooperative - Neurologic Neurologic: CNII-XII intact, no focal deficits Plan Activity: advance as tolerated, fall precautions Diet: low cholesterol, low salt, diabetic Follow up with: PRIMARY CAREMD [Primary Care Provider] - 3-5 Days ZAK HORN MD [Staff Physician] - 7 Days (sleep study) Forms: Accompanied Note, Warfarin Discharge Instruction Prescriptions: Insulin Glargine,Hum.rec.anlog [Lantus] 20 units SUB-Q QHS 30 Days amLODIPine [Norvasc] 10 g PO QDAY #30 tablet Aspirin [Aspirin EC] 81 mg PO QDAY #30 tablet. Clopidogrel Bisulfate [Plavix] 75 mg PO DAILY #30 tablet Famotidine [Pepcid] 20 mg PO BID #60 tablet Furosemide [Lasix] 20 mg PO QDAY #30 tablet Hydrochlorothiazide 12.5 mg PO QDAY #30 tablet Levothyroxine [Synthroid] 50 mcg PO QAM #30 tablet Losartan [Cozaar] 100 mg PO QDAY #30 tablet Metformin HCl [Glucophage] 500 mg PO BID #60 tablet Metoprolol [Lopressor TAB] 50 mg PO BID #60 tablet Potassium Chloride [Klor-Con 10] 10 meq PO QDAY #30 tablet.er
[2016-12-25] MEDS: PULMICORT IH SCH (16:26)
[2016-12-25] MEDS: BROVANA NEBU IH SCH (16:26)
== END 2016-12-25 14:16 | disposition home health service (06) | DRG 637 ==
LOC: ED 11:09 → 4A 16:46
PROVIDERS: ADMIT Internal Medicine; ATTEND Internal Medicine
DX: E11.649 Type 2 diabetes mellitus with hypoglycemia without coma (principal); G93.41 Metabolic encephalopathy; G45.9 Transient cerebral ischemic attack, unspecified; E78.5 Hyperlipidemia, unspecified; I10 Essential (primary) hypertension; I25.10 Atherosclerotic heart disease of native coronary artery without angina pectoris; K21.9 Gastro-esophageal reflux disease without esophagitis; J44.9 Chronic obstructive pulmonary disease, unspecified; E89.0 Postprocedural hypothyroidism; Y83.9 Surgical procedure, unspecified as the cause of abnormal reaction of the patient, or of later complication, without mention of misadventure at the time of the procedure; E66.01 Morbid (severe) obesity due to excess calories; Z88.2 Allergy status to sulfonamides; Z79.4 Long term (current) use of insulin; Z95.1 Presence of aortocoronary bypass graft; Z79.899 Other long term (current) drug therapy; Z79.82 Long term (current) use of aspirin; Z79.01 Long term (current) use of anticoagulants; Z90.710 Acquired absence of both cervix and uterus; Z98.51 Tubal ligation status
CPT/HCPCS: 36415; 70450; 74020; 80048; 80053; 80074; 81001; 82805; 82962; 83036; 84443; 84484; 85025; 85610; 93005; 93010; 93880; 94640; J1644; J1815; J1818

== ENCOUNTER 2021-06-24 07:14 | Emergency (ER) | payer MEDICARE ==
[2021-06-24 07:42] VITALS: BP 118/73
== END 2021-06-24 23:41 | disposition left against medical advice (07) ==
LOC: ED 07:14
DX: Z13.30 Encounter for screening examination for mental health and behavioral disorders, unspecified (principal); Z53.21 Procedure and treatment not carried out due to patient leaving prior to being seen by health care provider